=== PATIENT | male | born 1990 | race Caucasian/White ===

== ENCOUNTER 2018-10-21 13:48 | Emergency (ER) | payer OTHER ==
--- NOTE | 2018-10-21 13:59 | PDOC ---
Rapid Medical Evaluation Time Seen by Provider: 10/21/18 13:57 Medical Evaluation: 10/21/18 13:57 I have performed a brief exam on this patient. CC: suture removal. placed ~4 days ago at "[facility] PE: left subconjunctival hemorrhage. steri-strips to left lateral eyebrow Orders: nothing The patient will proceed to the ER for further evaluation. Discharge Disposition - Diagnosis Visit for suture removal - Referrals - Patient Instructions - Post Discharge Activity
[2018-10-21 14:04] VITALS: BP 155/106; PULSE 109; TEMP 98; BMI 25.3
--- NOTE | 2018-10-21 14:40 | PDOC ---
History of Present Illness - General Chief Complaint: Suture/Staple Removal (other) Stated Complaint: SUTURE REMOVAL Time Seen by Provider: 10/21/18 13:57 History Source: Patient Exam Limitations: No Limitations - History of Present Illness Initial Comments: 10/21/18 14:28 28 year old male with no significant medical or surgical history presents for suture removal. Patient AOB, cannot recall incident and when sutures were placed or the amount of sutures. Denies fever or chills. Timing/Duration: reports: week Severity: Yes: mild Location: reports: face Associated Symptoms: denies: edema Past History - Travel Traveled outside of the country in the last 30 days: No - Past Medical History Allergies/Adverse Reactions: Allergies Allergy/AdvReac Type Severity Reaction Status Date / Time No Known Allergies Allergy Verified 10/21/18 13:58 Home Medications: Ambulatory Orders NK [No Known Home Medication] 10/21/18 Asthma: No Cancer: No Cardiac Disorders: No CVA: No COPD: No CHF: No - Surgical History Cholecystectomy: No Gastric Stapling: No - Suicide/Smoking/Psychosocial Hx Smoking History: Current every day smoker Number of Cigarettes Smoked Daily: 10 Information on smoking cessation initiated: Yes Hx Alcohol Use: No Drug/Substance Use Hx: No Review of Systems - Review of Systems Able to Perform ROS?: Yes Is the patient limited Liberian proficient: No Constitutional: No: Chills, Fever, Weakness HEENTM: Yes: Other (laceration to left eyebrow). No: Eye Pain, Ear Pain, Ear Discharge, Nose Pain, Tinnitus, Dental Problems Respiratory: No: Cough, Wheezing Cardiac (ROS): No: Edema, Palpitations ABD/GI: No: Constipated, Nausea, Poor Appetite : No: Burning, Dysuria, Discharge, Testicular Swelling Musculoskeletal: No: Back Pain, Joint Pain, Muscle Weakness Integumentary: No: Bruising, Change in Color Neurological: No: Headache, Numbness Psychiatric: No: Mood Swings, Change in Appetite *Physical Exam - Vital Signs Last Vital Signs Temp Pulse Resp BP Pulse Ox 98 F 109 H 20 155/106 H 96 10/21/18 13:58 10/21/18 13:58 10/21/18 13:58 10/21/18 13:58 10/21/18 13:58 - Physical Exam General Appearance: Yes: Nourished, Appropriately Dressed HEENT: positive: EOMI, CHANEL, Scleral Icterus (L) Neck: positive: Supple. negative: Lymphadenopathy (R), Lymphadenopathy (L) Respiratory/Chest: positive: Lungs Clear Cardiovascular: positive: Regular Rhythm, Regular Rate Extremity: positive: Normal Capillary Refill Neurologic: positive: biotechnologist II-XII NML intact, Fully Oriented, Alert, Motor Strength / Medical Decision Making - Medical Decision Making 10/21/18 14:42 28 year old male with no significant medical or surgical history presents for suture removal. Plan: wound cleaned, steri-strips removed -3 whitish colored sutures noted, wound not well approximated -patient instructed to return in the am with papers from previous hospital who placed sutures to confirmed when they were placed -instructed to wash wound daily *DC/Admit/Observation/Transfer Diagnosis at time of Disposition: Visit for suture removal, Visit for wound check - Discharge Dispostion Disposition: HOME Condition at time of disposition: Good Decision to Admit order: No - Referrals - Patient Instructions Printed Discharge Instructions: DI for Suture Removal Additional Instructions: Wash wound daily with gentle soap and water Return to emergency room with paper from past hospital tomorrow - Post Discharge Activity
== END 2018-10-21 15:05 | disposition home or self-care (01) ==
LOC: JERFT 13:48
DX: Z48.02 Encounter for removal of sutures (principal)
CPT/HCPCS: 99281-25

== ENCOUNTER 2018-10-30 16:46 | Emergency (ER) | payer OTHER ==
[2018-10-30 16:51] VITALS: BP 110/88; PULSE 100; TEMP 98.6; BMI 19.5
--- NOTE | 2018-10-30 17:23 | PDOC ---
Suture Removal/Wound Check HPI - History of Present Illness Chief Complaint: Suture/Staple Removal(Here) Stated Complaint: SUTURE REMOVEL Time Seen by Provider: 10/30/18 17:13 Date of Last ED visit: 10/15/18 - Previous ED Treatment Type of procedure performed on last visit: Yes: Laceration Repair - Onset of Previous Treatment Date of Occurence: 10/15/18 Comment:: 10/30/18 17:27 Patient was seen at [facility] and had 3 stitches placed to left eye brow on 10/15/18. Patient is poor historian as he was intoxicated at time of that visit. He was seen in this ED and told to return and bring his discharge instructions which he did today but they are missing any documentation regarding his lac repair. 4 stitches to L browbone, well-healing, no erythema or discharge. 10/30/18 17:40 Sutures removed without complication. Patient is unsure of tdap status and there is no evidence he was given one at his previous hospital visit but patient refuses one and states he wants to get it with is PCP. Past History - Past Medical History Allergies/Adverse Reactions: Allergies Allergy/AdvReac Type Severity Reaction Status Date / Time No Known Allergies Allergy Verified 10/30/18 16:48 Home Medications: Ambulatory Orders NK [No Known Home Medication] 10/21/18 Asthma: No Cancer: No Cardiac Disorders: No CVA: No COPD: No CHF: No - Surgical History Cholecystectomy: No Gastric Stapling: No - Suicide/Smoking/Psychosocial Hx Smoking History: Current every day smoker Number of Cigarettes Smoked Daily: 20 Information on smoking cessation initiated: No Hx Alcohol Use: No Drug/Substance Use Hx: No *Physical Exam - Vital Signs Last Vital Signs Temp Pulse Resp BP Pulse Ox 98.6 F 100 H 18 110/88 99 10/30/18 16:48 10/30/18 16:48 10/30/18 16:48 10/30/18 16:48 10/30/18 16:48 *DC/Admit/Observation/Transfer Diagnosis at time of Disposition: Visit for suture removal - Discharge Dispostion Disposition: HOME Condition at time of disposition: Stable Decision to Admit order: No - Referrals - Patient Instructions Printed Discharge Instructions: DI for Suture Removal - Post Discharge Activity
== END 2018-10-30 17:55 | disposition home or self-care (01) ==
LOC: JERFT 16:46
DX: Z48.02 Encounter for removal of sutures (principal)
CPT/HCPCS: 99281-25